=== PATIENT | male | born 1990 | race Caucasian/White ===

== ENCOUNTER 2020-10-24 10:59 | Outpatient (REF) | payer OTHER, SELFPAY ==
[2020-10-24 15:13] LABS: SARS COV2 PCR INHOUSE NEGATIVE (Negative)
== END 2020-10-24 11:00 | disposition home or self-care (01) ==
LOC: HO.LAB 10:59
PROVIDERS: Visit Provider Internal Medicine
DX: Z20.822 Contact with and (suspected) exposure to COVID-19 (principal)
CPT/HCPCS: C9803; U0003

== ENCOUNTER 2020-11-27 14:30 | Emergency (ER) | payer OTHER, SELFPAY ==
[2020-11-27 14:45] VITALS: BP 131/96; BP 140/90; PULSE 119; PULSE 120; RESP 18; TEMP 36.8; O2SAT 96; BMI 37.0
--- NOTE | 2020-11-27 15:16 | ED.ALLEREA ---
HPI - Allergic Reaction General Chief complaint: Allergic Reaction Stated complaint: allergic reaction Time Seen by Provider: 11/27/20 15:16 Source: patient Mode of arrival: EMS Limitations: no limitations History of Present Illness HPI narrative: Patient with a history of unkown allergy, states he was feeling tongue swelling and difficulty breathing. Called EMS who place IV and gave benadryl. Patient improved but feels he needs more benadryl Onset (ago): hour(s) Exposure: unknown Symptoms: facial swelling, difficulty breathing and tongue swelling Severity: mild Treatment prior to arrival: benadryl Related Data Previous Rx's Medication Instructions Recorded diphenhydramine HCl [Benadryl] 25 mg PO Q6H PRN #20 cap 11/27/20 Allergies Allergy/AdvReac Type Severity Reaction Status Date / Time No Known Allergies Allergy Unverified 04/11/20 19:00 [No Known Allergies*] Review of Systems Constitutional: Constitutional: Reports no additional constitutional complaints Eyes: Eyes: Reports no additional eye complaints ENT: Denies dizziness Cardiovascular: Cardiovascular: Reports no additional cardiovascular complaints Respiratory: Respiratory: Reports as per HPI Gastrointestinal: Gastrointestinal: Reports no additional gastrointestinal complaints Musculoskeletal: Musculoskeletal: Reports no additional musculoskeletal complaints Integumentary/Breasts: Skin/Breast: Denies rash Neurologic: Reports system reviewed and no additional complaints, except as documented, Denies dizziness and Denies Sensory deficit (Neuro) Psychiatric: Psychiatric: Denies anxiety [facility] Social History Social History Advance Directives: No Advance Directives Information Provided: No Physical Exam Vital Signs: Vital Signs: Last Vital Signs Temp 98.2 F 11/27/20 14:45 Pulse 119 H 11/27/20 14:45 Resp 18 11/27/20 14:45 BP 131/96 H 11/27/20 14:45 Pulse Ox 96 11/27/20 14:45 Body Mass Index 37.0 Const: Other: obese male in no distress Orientation/consciousness: oriented to person and patient oriented x3 Limitations: no limitations HENMT: Other: no evidence of tongue or lip swelling Head: Yes normal to inspection Ears: external ears normal General nose exam: Normal external nose present Mouth: Normal oral and palatal mucosa present and oropharynx normal Throat: Yes posterior oropharynx normal Eyes: General: appearance normal, both eyes and all related structures Neck: Other: supple Neck: Yes normal visual inspection Chest: Chest palpation & inspection: normal inspection of the chest Resp: Auscultation: clear to auscultation bilaterally Cardio: Jugular venous distension: no JVD Rate: regular rate Rhythm: regular rhythm Heart sounds: S1 normal heart sound present and S2 normal heart sound present GI: Inspection: Yes normal to inspection Palpation (GI): Soft to palpation, nontender and No hepatosplenomegaly present Auscultation: normal bowel sounds : General: Yes no CVA tenderness Back/Spine/Pelvis: Back: no CVA tenderness Skin: General skin exam: no rashes or lesions noted Neuro: General: oriented to person and patient oriented x3 Cranial nerves: Yes CN's II-XII intact bilaterally Motor exam (neuro): 5/5 motor strength present throughout Sensory Exam: No Sensory deficit (Neuro) Extrem: General: Yes normal to inspection Psych: Appearance: grossly normal Course Course Course Narrative: will give benadryl and dc home Discharge Plan Discharge Clinical Impression: Allergic reaction Qualifiers: Encounter type: subsequent encounter Qualified Code(s): T78.40XD - Allergy, unspecified, subsequent encounter Patient Disposition: Home, Self-Care Instructions: Allergies (ED) Prescriptions: New diphenhydramine HCl [Benadryl] 25 mg capsule 25 mg PO Q6H PRN (Reason: allergic reaction) Qty: 20 RF: 0 Referrals: [facility] [Primary Care Provider] - 2 days
[2020-11-27] MEDS: diphenhydrAMINE HCL 50 MG/ML VIAL 25 MG IVPUSH (16:02)
== END 2020-11-27 16:03 | disposition home or self-care (01) ==
PROVIDERS: Emergency Provider Emergency Medicine
DX: T78.40XD Allergy, unspecified, subsequent encounter (principal); X58.XXXD Exposure to other specified factors, subsequent encounter
CPT/HCPCS: 96374; 99283; 99284; J1200

== ENCOUNTER 2022-01-12 16:20 | Emergency (ER) | payer OTHER, SELFPAY ==
[2022-01-12 16:45] VITALS: BP 129/65; BP 139/95; PULSE 100; PULSE 76; RESP 20; TEMP 36.2; O2SAT 97; O2SAT 99; BMI 36.6
--- NOTE | 2022-01-12 19:35 | ED.EXTPRO ---
HPI - Extremity Problem General Chief complaint: Extremity Injury, Upper Stated complaint: Anxiety Time Seen by Provider: 01/12/22 19:35 Source: patient Mode of arrival: ambulatory Limitations: no limitations History of Present Illness HPI Narrative: 32 year old male presents w/ anxiety and left second finger pain X3 days. Patient was fixing something and he got a nail to his left second distal aspcect of finger around the cuticle. He report pain, redness and swelling to area. Tells me this has made him very anxious and he cant sleep. Not up to date on tetanus. Denies numbness or tinging. No FB sensaiton, Denies SI and HI and denies fevers and chills. MD Complaint: other (Finger pain, Anxiety ) Onset (ago): day(s) (3) Pain Consistency: constant Location: left Severity scale (1-10): >10 Quality: burning, aching and constant Radiation: none Relieving factors: nothing Exacerbating factors: nothing Associated symptoms: denies other symptoms Related Data Previous Rx's Medication Instructions Recorded diphenhydramine HCl 25 mg capsule 25 mg PO Q6H PRN allergic reaction 11/27/20 (Benadryl) #20 caps prednisone 20 mg tablet 40 mg PO DAILY 3 days #6 tabs 11/28/20 cephalexin 500 mg tablet 500 mg PO Q6H 10 days #40 tabs 01/12/22 doxycycline hyclate 100 mg capsule 100 mg PO BID 10 days #20 caps 01/12/22 hydroxyzine HCl 25 mg tablet 25 mg PO Q8H PRN anxiety #14 tabs 01/12/22 Allergies Allergy/AdvReac Type Severity Reaction Status Date / Time No Known Allergies Allergy Verified 11/28/20 15:03 [No Known Allergies*] Review of Systems Review of Systems: Constitutional : No Fever, No Chills ENT/Mouth : No Ear Pain, No Nasal Congestion, No sore throat Eyes: No Eye Pain, No Swelling, No Redness Cardiovascular : No Chest Pain, No SOB Respiratory : No Cough, No Sputum, No Dyspnea Gastrointestinal : No Nausea, No Vomiting, No Diarrhea, No Hematochezia, No Melena Genitourinary : No Dysuria, No Urinary Frequency, No Hematuria Musculoskeletal : No Myalgias, + swollen finger Skin : No Skin Lesions, No rash Neuro : No Weakness, No Numbness, No Paresthesias, No Dizziness, No Headache Psych : + Anxiety, No Depression, No SI/HI Heme/Lymph: No Lymphadenopathy Endocrine : No Polyuria, No Polydipsia All other systems reviewed and are negative Yes all other systems are reviewed and are negative [facility] Past Medical History Attestation statement: The following information was validated with the patient. Source: old records reviewed and nursing notes reviewed Medical History Allergy Family History Family History Mother Diabetes Father No problems noted. Social History Social History Alcohol intake: current Cigarettes Per Day: 2 Advance Directives: No Advance Directives Information Provided: No Physical Exam Vital Signs: Vital Signs: Last Vital Signs Temp 97.5 F 01/12/22 20:17 Pulse 106 H 01/12/22 20:17 Resp 18 01/12/22 20:17 BP 150/94 H 01/12/22 20:17 Pulse Ox 98 01/12/22 20:17 O2 Del Method 01/12/22 20:17 BMI result Body Mass Index 36.6 VSS Appearance: Alert.? Oriented X3.? No acute distress.? Head: Normocephalic, atraumatic, no step-offs or deformities Eyes: Pupils equal, round and reactive to light.? ENT: Pharynx normal.? Neck: Normal inspection.? Neck supple.? CVS: Normal heart rate and rhythm.? Pulses normal.? Respiratory: No respiratory distress.? Breath sounds normal.? Abdomen: Soft and nontender.? Skin: Skin warm and dry.? Normal skin color.? Normal skin turgor.?+ paryonychia to left second digit. Extremities: No lower extremity edema.? No calf ttp. 5/5 strength to bilateral upper and lower extremities Neuro: Oriented X 3.? No motor deficit.? No sensory deficit. CN 2-12 intact Course Reevaluation(s) Reevaluation #1: Tenus and I&D at bedside small purulence and blood expressed. No complications. Patient will be sent home on doxy and cephlex. PCP follow up and return with new or worsening sx. Time: 19:50 MDM - Extremity (Nontraumatic) MDM Narrative Medical decision making narrative: 193 32 yo m presents w/ paronychia and anxiety X3 days PE significant for paronychia to left second digit. Joyce rawls or gil ricketts. Alvinaley paronychia. Plan- I&D, and N follow up. Patient will be given tetanus. Medical Records Attestation: I reviewed the patient's medical records. Lab Data Attestation: I reviewed the patient's lab results. Critical Care Time Critical Care Time Critical Care Time: No Discharge Plan Discharge Clinical Impression: Anxiety, Paronychia of finger Patient Disposition: Home, Self-Care Instructions: Anxiety (ED) Additional Instructions: Take your medications as prescribed. If you were prescribed antibiotics today, it is important that you take your medication to their entirety, do not skip any doses, do not finish them early. Follow-up with your primary care provider this week. Return to the emergency department with new or worsening symptoms. Fevers, chills, worsening redness, pain,sweling In case of emergency call 911 Prescriptions: New hydroxyzine HCl 25 mg tablet 25 mg PO Q8H PRN (Reason: anxiety) Qty: 14 0RF doxycycline hyclate 100 mg capsule 100 mg PO BID 10 Days Qty: 20 0RF cephalexin 500 mg tablet 500 mg PO Q6H 10 Days Qty: 40 0RF No Action diphenhydramine HCl [Benadryl] 25 mg capsule 25 mg PO Q6H PRN (Reason: allergic reaction) Qty: 20 0RF prednisone 20 mg tablet 40 mg PO DAILY 3 Days Qty: 6 0RF Referrals: Ashu Turpin PA-C [Primary Care Provider] - 2 days Stand Alone Forms: Work/School Release
[2022-01-12 20:17] VITALS: BP 150/94; PULSE 106; RESP 18; TEMP 36.4; O2SAT 98
[2022-01-12] MEDS: Lidocaine HCl 1 % MPF 5 ML VIAL SUBCUT (20:58)
== END 2022-01-12 20:59 | disposition home or self-care (01) ==
PROVIDERS: Emergency Provider Emergency Medicine; PCP Physician Assistant
DX: L03.012 Cellulitis of left finger (principal); F41.1 Generalized anxiety disorder; F43.0 Acute stress reaction; F17.210 Nicotine dependence, cigarettes, uncomplicated; Z79.899 Other long term (current) drug therapy; Z71.6 Tobacco abuse counseling
CPT/HCPCS: 96372; 99283; 99284

== ENCOUNTER 2022-04-14 07:43 | Outpatient (REF) | payer OTHER, SELFPAY ==
[2022-04-14 11:15] LABS: Hematocrit 46.9 % (42.0-52.0); Hemoglobin 15.4 g/dl (14.0-18.0); Mean Corpuscular HGB Conc 32.8 g/dl (31.0-36.0); Mean Corpuscular Volume 79.1 fL (80.0-98.0); Mean Platelet Volume 10.6 fL (9.4-12.4); Platelet Count 309 X10*3/uL (160-400); Red Blood Count 5.93 X10*6/uL (4.60-5.80); Red Cell Distribution Width 12.8 % (11.0-16.0); White Blood Count 8.5 X10*3/uL (4.8-10.8)
[2022-04-14 11:25] LABS: Alanine Aminotransferase 79 U/L (0-40); Albumin Level 4.5 g/dL (3.5-5.0); Alkaline Phosphatase 104 U/L (39-117); Anion Gap 15 (12-20); Aspartate Amino Transferase 32 U/L (5-37); Bilirubin Total 0.5 mg/dL (0.0-1.0); Blood Urea Nitrogen 12 mg/dL (9-16); Calcium 9.6 mg/dL (8.4-10.2); Carbon Dioxide 29 mmol/L (22-29); Chloride 100 mmol/L (96-108); Estimated Glomerular Filt Rate > 60; Glucose Random 233 mg/dL (60-115); Potassium 4.5 mmol/L (3.3-5.1); Sodium 139 mmol/L (135-145); Total Protein 7.1 g/dL (6.5-8.0)
[2022-04-14 11:27] LABS: Estimated Average Glucose 346 mg/dL; Hemoglobin A1c % 13.7 %
== END 2022-04-14 07:44 | disposition home or self-care (01) ==
LOC: HO.10HDL 07:43
PROVIDERS: PCP Internal Medicine; Visit Provider Nurse Practitioner Family
DX: R73.03 Prediabetes (principal)
CPT/HCPCS: 36415; 80053; 83036; 85027